=== PATIENT | male | born 1980 | race Caucasian/White ===

== ENCOUNTER 2017-07-14 12:05 | Emergency (ER) | payer OTHER ==
[~2017-07-14] VITALS: Ht 182.9 cm; Wt 88.9 kg
[~2017-07-14 12:05] MED LIST: FAMO-96 PO; IBUP800T25 PO; OMEP20CA9 PO
[2017-07-14 12:07] VITALS: Ht 182.9 cm; Wt 88.9 kg
--- NOTE | 2017-07-14 12:55 | ERD ---
ER Documentation Chief Complaint Chief Complaint generalized bodyaches x 2 weeks HPI 36-year-old male, history of methamphetamine abuse, otherwise healthy presents with generalized body aches, dental pain, headache for 2 weeks. Patient states that his pain has been like sharp stabbing pains on the left side of his head, ongoing for 2 weeks. He has not had any fevers, chills, cough, vomiting, diarrhea, abdominal pain or chest pain. He states the last time he used methamphetamine was about a week ago. ROS All systems reviewed and are negative except as per history of present illness. Medications Home Meds Active Scripts Ibuprofen* (Motrin*) 600 Mg Tab, 600 MG PO Q6, #30 TAB Prov:CHIKA CHAVEZ PA-C 07/14/17 Acetaminophen* (Tylophen*) 500 Mg Capsule, 1 CAP PO Q6H Y for PAIN AND OR ELEVATED TEMP, #20 CAP Prov:CHIKA CHAVEZ PA-C 07/14/17 Famotidine* (Pepcid*) 20 Mg Tablet, 20 MG PO QAM for 4 Days, TAB Prov:SUMAN WEST PA-C 09/16/15 Omeprazole* (Prilosec*) 20 Mg Capsule.dr, 20 MG PO DAILY for 14 Days, CAP Prov:SUMAN WEST PA-C 09/16/15 Ibuprofen* (Motrin*) 800 Mg Tab, 800 MG PO Q6H Y for PAIN AND OR ELEVATED TEMP, #30 TAB Prov:SURINDER CARROLL MD 06/20/15 Allergies Allergies: Coded Allergies: No Known Allergy (Unverified , 06/20/15) PMhx/Soc History of Surgery: No Anesthesia Reaction: No Hx Neurological Disorder: No Hx Respiratory Disorders: No Hx Cardiac Disorders: No Hx Psychiatric Problems: No Hx Miscellaneous Medical Probl: No Hx Alcohol Use: No Hx Substance Use: No Hx Tobacco Use: No Physical Exam Vitals Vital Signs Date Time Temp Pulse Resp B/P Pulse Ox O2 Delivery O2 Flow Rate FiO2 07/14/17 12:07 97.7 93 18 123/77 97 Physical Exam General: Well-developed, well-nourished. The patient appears in no acute distress. HEENT: Head is normocephalic, atraumatic. No scleral icterus. Pupils are equal , round, and reactive. Oral mucous membranes are moist. No pharyngeal erythema. Neck: Supple. Nontender. Lungs: Clear to auscultation. Normal air movement. Heart: Regular rate and rhythm. S1 and S2 are normal. No murmurs, gallops, or rubs. Abdomen: Soft, nontender, nondistended. Bowel sounds are normoactive. Extremities: No clubbing or cyanosis. Normal pulses. Moving extremities x 4. No weakness. Neurologic: Alert and oriented 3. No focal deficits. Speech and gait normal, no focal weakness. Skin: Normal turgor. No rash or lesions. Result Diagram: 07/14/17 1305 07/14/17 1305 Results 24 hrs Laboratory Tests Test 07/14/17 13:00 07/14/17 13:05 Urine Color YELLOW Urine Clarity CLEAR Urine pH 6.0 Urine Specific [place] 1.024 Urine Ketones NEGATIVEmg/dL Urine Nitrite NEGATIVEmg/dL Urine Bilirubin NEGATIVEmg/dL Urine Urobilinogen NEGATIVEmg/dL Urine Leukocyte Esterase NEGATIVELeu/ul Urine Hemoglobin NEGATIVEmg/dL Urine Glucose NEGATIVEmg/dL Urine Total Protein NEGATIVEmg/dl White Blood Count 6.310^3/ul Red Blood Count 5.0510^6/ul Hemoglobin 14.6g/dl Hematocrit 42.3% Mean Corpuscular Volume 83.8fl Mean Corpuscular Hemoglobin 28.9pg Mean Corpuscular Hemoglobin Concent 34.5g/dl Red Cell Distribution Width 12.2% Platelet Count 65973^3/UL Mean Platelet Volume 9.4fl Neutrophils % 51.2% Lymphocytes % 36.9% Monocytes % 6.5% Eosinophils % 4.1% Basophils % 0.5% Nucleated Red Blood Cells % 0.0/100WBC Neutrophils # 3.210^3/ul Lymphocytes # 2.310^3/ul Monocytes # 0.410^3/ul Eosinophils # 0.310^3/ul Basophils # 0.010^3/ul Nucleated Red Blood Cells # 0.010^3/ul Sodium Level 143mmol/L Potassium Level 4.3mmol/L Chloride Level 109mmol/L Carbon Dioxide Level 25mmol/L Anion Gap 13 Blood Urea Nitrogen 24mg/dl Creatinine 0.85mg/dl Glucose Level 98mg/dl Calcium Level 9.5mg/dl Total Bilirubin 0.4mg/dl Direct Bilirubin 0.00mg/dl Indirect Bilirubin 0.4mg/dl Aspartate Amino Transf (AST/SGOT) 30IU/L Alanine Aminotransferase (ALT/SGPT) 46IU/L Alkaline Phosphatase 90IU/L Total Protein 7.3g/dl Albumin 3.9g/dl Globulin 3.40g/dl Albumin/Globulin Ratio 1.14 Lipase 162U/L Current Medications Medications (Trade) Dose Ordered Sig/Don Route PRN Reason Start Time Stop Time Status Last Admin Dose Admin Acetaminophen (Tylenol Tab) 650 mg ONCE ONCE PO 07/14/17 13:00 07/14/17 13:01 DC 07/14/17 13:49 DIAGNOSTIC IMAGING REPORT Patient: ARUN SEO : 1980 Age: 36 Sex: M MR #: [id number] DOS: 07/14/17 1246 Ordering MD: CHIKA CHAVEZ PA-C Location: [facility] Room/Bed: PROCEDURE: XR Chest. CLINICAL INDICATION: chest pain, abdominal pain TECHNIQUE: Single frontal view of the chest was obtained COMPARISON: 09/16/15 FINDINGS: The heart and mediastinum are within normal limits. The lungs are clear. There is no pleural effusion or pneumothorax. RPTAT: AA IMPRESSION: No acute disease. .Clifford Hyman MD, Date Time Electronically viewed and signed by .Clifford Hyman MD, on 07/14/2017 13: 33 .S/ CC: CHIKA CHAVEZ PA-C DIAGNOSTIC IMAGING REPORT Patient: ARUN SEO : 1980 Age: 36 Sex: M MR #: [id number] DOS: 07/14/17 1246 Ordering MD: CHIKA CHAVEZ PA-C Location: [facility] Room/Bed: PROCEDURE: CT Brain without contrast. CLINICAL INDICATION: Headaches. Neurologic deficit TECHNIQUE: A CT of the brain was performed on multidetector high-resolution CT scanner utilizing axial sections from the skull base through the vertex without contrast. One or more of the following dose reduction techniques were used: Automated exposure control, Adjustment of the mA and/or kV according to patient size, and/or use of iterative reconstruction technique. DICOM images are available. DOSE: CTDI = 45 mGy and the DLP = 720 mGy-cm. COMPARISON: Head CT 06/20/2015 FINDINGS: No acute intracranial hemorrhage, significant mass effect or midline shift. The fuentes-white differentiation is grossly preserved. The ventricles are normal in size for age. No significant opacification of the visualized paranasal sinuses or mastoids. IMPRESSION: No acute intracranial findings. RPTAT: AA .Bk Cruz MD, MD Date Time Electronically viewed and signed by .Bk Cruz MD, MD on 07/14/2017 13:23 .T/ CC: CHIKA CHAVEZ PA-C Procedures/[facility] 36-year-old male presents with general body aches, headache for the past 2 weeks. Patient has normal labs, normal chemistry, electrolytes, LFTs. No leukocytosis, no evidence of pneumonia, CT scan of the brain is normal. Patient has a history of methamphetamine abuse, and he has stopped using about a week ago. He clinically does not have any signs of rhabdomyolysis, sepsis, dehydration, altered level consciousness. The patient will be given Tylenol and ibuprofen to take at home. Departure Diagnosis: Primary Impression: Headache Additional Impression: Myalgia Condition: Good CHIKA CHAVEZ PA-C Jul 14, 2017 12:55
[2017-07-14] MEDS ORDERED: ACETAMINOPHEN 325 MG TAB PO ONE (13:00)
[2017-07-14 13:21] LABS: BASOPHILS % 0.5 % (0.0-2.0); EOSINOPHILS # 0.3 10^3/ul (0.0-0.5); EOSINOPHILS % 4.1 % (0.0-7.0); HEMATOCRIT 42.3 % (42.0-52.0); HEMOGLOBIN 14.6 g/dl (14.0-18.0); LYMPHOCYTES # 2.3 10^3/ul (0.8-2.9); LYMPHOCYTES % 36.9 % (15.0-51.0); MEAN CORPUSCULAR HEMOGLOBIN 28.9 pg (29.0-33.0); MEAN CORPUSCULAR HGB CONC 34.5 g/dl (32.0-37.0); MEAN CORPUSCULAR VOLUME 83.8 fl (82.0-101.0); MEAN PLATELET VOLUME 9.4 fl (7.4-10.4); MONOCYTE # 0.4 10^3/ul (0.3-0.9); MONOCYTES % 6.5 % (0.0-11.0); NEUTROPHIL # 3.2 10^3/ul (1.6-7.5); NEUTROPHILS % 51.2 % (39.0-77.0); PLATELET COUNT 287 10^3/UL (140-415); RED BLOOD COUNT 5.05 10^6/ul (4.70-6.10); RED CELL DISTRIBUTION WIDTH 12.2 % (11.5-14.5); WHITE BLOOD COUNT 6.3 10^3/ul (4.8-10.8)
--- NOTE | 2017-07-14 13:23 | RADRPT ---
PROCEDURE: CT Brain without contrast. CLINICAL INDICATION: Headaches. Neurologic deficit TECHNIQUE: A CT of the brain was performed on multidetector high-resolution CT scanner utilizing a xial sections from the skull base through the vertex without contrast. One or more of the following dose reduction techniques were used: Automated exposure control, Adjustment of the mA and/or kV acc ording to patient size, and/or use of iterative reconstruction technique. DICOM images are available . DOSE: CTDI = 45 mGy and the DLP = 720 mGy-cm. COMPARISON: Head CT 06/20/2015 FINDINGS: No acute intracranial hemorrhage, significant mass effect or midline shift. The fuentes-white different iation is grossly preserved. The ventricles are normal in size for age. No significant opacification of the visualized paranasal sinuses or mastoids. IMPRESSION: No acute intracranial findings. RPTAT: AA .Bk Cruz MD, MD Date Time Electronically viewed and signed by .Bk Cruz MD, on 07/14/2017 13:23 .T/
[2017-07-14 13:27] LABS: ADD UMIC NO; UR ASCORBIC ACID NEGATIVE (NEGATIVE); UR BILIRUBIN (Dip) NEGATIVE (NEGATIVE); UR BLOOD (Dip) NEGATIVE (NEGATIVE); UR CLARITY CLEAR (CLEAR); UR COLOR YELLOW (YELLOW); UR GLUCOSE (Dip) NEGATIVE (NEGATIVE); UR KETONES (Dip) NEGATIVE (NEGATIVE); UR LEUKOCYTE ESTERASE (Dip) NEGATIVE Leu/ul (NEGATIVE); UR NITRITE (Dip) NEGATIVE (NEGATIVE); UR SPECIFIC GRAVITY (Dip) 1.024 (1.003-1.030); UR TOTAL PROTEIN (Dip) NEGATIVE (NEGATIVE); UR UROBILINOGEN (Dip) NEGATIVE (NEGATIVE)
--- NOTE | 2017-07-14 13:34 | RADRPT ---
PROCEDURE: XR Chest. CLINICAL INDICATION: chest pain, abdominal pain TECHNIQUE: Single frontal view of the chest was obtained COMPARISON: 09/16/15 FINDINGS: The heart and mediastinum are within normal limits. The lungs are clear. There is no pleural effusion or pneumothorax. RPTAT: AA IMPRESSION: No acute disease. .Clifford Hyman MD, MD Date Time Electronically viewed and signed by .Clifford Hyman MD, MD on 07/14/2017 13:33 .S/
[2017-07-14 13:39] LABS: ALBUMIN 3.9 g/dl (3.3-4.9); ALBUMIN/GLOBULIN RATIO 1.14; BILIRUBIN,INDIRECT 0.4 mg/dl (0-1.1); BILIRUBIN,TOTAL 0.4 mg/dl (0.2-1.3); CALCIUM 9.5 mg/dl (8.4-10.2); CREATININE 0.85 mg/dl (0.61-1.24); POTASSIUM 4.3 mmol/L (3.5-5.1); TOTAL PROTEIN 7.3 g/dl (6.1-8.1)
[2017-07-14] MEDS ORDERED: ACET500C5 PO (13:46)
[2017-07-14] MEDS ORDERED: IBUP-1542 PO (13:46)
== END 2017-07-14 13:53 | disposition home or self-care (01) ==
LOC: FTE 12:05
DX: R51 Headache (principal); M79.1 Myalgia
CPT/HCPCS: 36415; 70450; 71010; 80053; 81003; 83690; 85025; Z7502; Z7610